=== PATIENT | female | born 1955 | race Caucasian/White ===

== ENCOUNTER 2017-02-19 16:21 | Emergency (ER) | payer SELFPAY ==
[2017-02-19 16:46] VITALS: BP 130/84
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
--- NOTE | 2017-02-19 17:31 | RAD ---
INDICATION: Left wrist injury COMPARISON: None TECHNIQUE: AP, lateral, and oblique views were obtained. FINDINGS: The bony structures, joint spaces, and soft tissues are normal for age. IMPRESSION: NO ACUTE BONY FINDINGS.
== END 2017-02-19 17:58 | disposition home or self-care (01) ==
LOC: UCCORT 16:21
DX: S60.212A Contusion of left wrist, initial encounter (principal); X58.XXXA Exposure to other specified factors, initial encounter; Z88.0 Allergy status to penicillin; Z88.2 Allergy status to sulfonamides
CPT/HCPCS: 99201; G0463